=== PATIENT | male | born 1995 | race Two or more races ===

== ENCOUNTER 2016-10-02 10:40 | Emergency (ER) | payer OTHER ==
[2016-10-02] MEDS ORDERED: LETS SOLN TOPICAL 1 EA SYR TP ONE (11:01)
[2016-10-02 11:07] VITALS: BP 124/73; PULSE 60; RESP 14; TEMP 98.6; O2SAT 97
--- NOTE | 2016-10-02 11:29 | UCPHY ---
H & P Time Seen by Provider: 10/02/16 11:02 Patient Type: New HPI/ROS: This patient sustained a thumb laceration to the left thumb when he slipped with a knife while cutting a bagel. He reports mild pain at the site of the laceration and denies any other injuries. He has no other associated symptoms. The injury occurred shortly prior to arrival. ROS: No numbness. No difficulty moving the thumb. No other injuries in 5 point ROS is otherwise negative. Past Medical/Surgical History: Immunizations up-to-date Smoking Status: Never smoked Physical Exam: Physical Exam Vital signs are normal. General: No acute distress Eyes: Pupils equal and react to light. Extraocular motions are intact. Cardiac: Brisk capillary refill is intact throughout. Pulses are 2+ and symmetric in the affected extremity. Skin: No rash or pallor. There is a 2 cm laceration to the dorsum of the left thumb with no active bleeding. Subcutaneous tissues evident but no deeper structures are injured. Neuro: Alert with no sensorimotor deficits to the affected digit. Constitutional: Initial Vital Signs Temperature (C) 37 C 10/02/16 11:04 Heart Rate 60 10/02/16 11:04 Respiratory Rate 14 10/02/16 11:04 Blood Pressure 124/73 H 10/02/16 11:04 O2 Sat (%) 97 10/02/16 11:04 O2 Delivery Mode Room Air Allergies/Adverse Reactions: No Known Allergies Allergy (Unverified 08/20/13 20:46) Home Medications: Medication Instructions Recorded Albuterol 10/02/16 Singulair 10/02/16 MDM/Departure - MDM Procedures: Digital block: After verbal consent, using a 50 50 mix of 0.5% Marcaine 2% plain lidocaine, 27 gauge needle, chlorhexidine scrub under sterile conditions- 3 injections were administered to the base of the affected finger, 8 mL with good effect. Patient tolerated this well. There were no complications. The wound is 1.3 cm long full-thickness dorsum of the thumb. The wound was scrubbed with saline and shampoo. The wound was explored for foreign bodies and none were found. The wound was prepped and draped in the normal sterile fashion. The edges were reapproximated using 4 0 Ethilon-3 running sutures with good hemostasis and cosmesis. The patient tolerated the procedure well. There were no complications. A dressing is placed. We counseled him regarding wound care. Medications Given: Discontinued Medications Tetracaine/Epinephrine/Lidocaine (Lets Soln Topical) 1 ea TP EDNOW ONE Stop: 10/02/16 11:02 Last Admin: 10/02/16 12:00 Dose: Not Given - Depart Disposition: Home, Routine, Self-Care Clinical Impression: Finger laceration Qualifiers: Encounter type: initial encounter Qualified Code(s): S61.219A - Laceration without foreign body of unspecified finger without damage to nail, initial encounter Condition: Good Instructions: Finger Laceration (ED) Additional Instructions: Diagnosis: Thumb laceration Plan: Keep the wound clean and dry for the next 2 days. Then clean it daily with warm soapy water Ibuprofen Tylenol for pain as needed Return for suture removal in 10-12 days. Return sooner for redness, discharge or other concerns for infection Referrals: Khloe Rubio MD [Primary Care Provider] - As per Instructions - PQRS PQRS Measurement: NA
== END 2016-10-02 12:35 | disposition home or self-care (01) ==
LOC: CED 10:40
PROC: 0HQGXZZ Repair Left Hand Skin, External Approach (ICD-10-PCS; principal; 2016-10-02)
DX: S61.012A Laceration without foreign body of left thumb without damage to nail, initial encounter (principal); W26.0XXA Contact with knife, initial encounter; Y93.G1 Activity, food preparation and clean up; Y99.8 Other external cause status
CPT/HCPCS: 12001-PO; 99203-PO; G0463-PO